=== PATIENT | female | born 1995 | race Caucasian/White ===

== ENCOUNTER 2019-10-15 09:21 | Emergency (ER) | payer OTHER ==
[~2019-10-15] VITALS: Ht 162.6 cm; Wt 64.6 kg
[~2019-10-15 09:21] MED LIST: AZIT500T10 PO; BIRTH CONTROL PILL PO; FLUC200T PO; SUMA50TA3 PO
--- NOTE | 2019-10-15 09:56 | NUR ---
TO ROOM FROM LOBBY. NAD.
--- NOTE | 2019-10-15 10:04 | NUR ---
pt ambulated with a steady gait from the lobby. 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 mother is at bedside with pt. warm blankets and ua cup given. awaiting provider orders.
[2019-10-15 11:52] LABS: MICROSCOPIC INDICATED
[2019-10-15 11:57] LABS: MEAN CORPUSCULAR HGB CONC 32.9 g/dL (32.4-35.8); MEAN CORPUSCULAR VOLUME 94.3 fL (80-100); RED BLOOD COUNT 3.99 x10^6/uL (3.82-5.3); RED CELL DISTRIBUTION WIDTH 15.6 % (9.6-15.2)
[2019-10-15 12:00] LABS: ALBUMIN 4.1 g/dL (3.4-5.0); ANION GAP 7 mmol/L (5-15); CALCIUM 8.9 mg/dL (8.5-10.1); CHLORIDE 112 mmol/L (98-107); CREATININE 0.82 mg/dL (0.55-1.02)
[2019-10-15 12:01] LABS: CULTURE INDICATED? NO
[2019-10-15 12:28] LABS: BASOPHILS # (AUTO) 0.04 x10^3/uL (0-0.1); BASOPHILS % (AUTO) 0 % (0-1); EOSINOPHILS # (AUTO) 0.41 x10^3/uL (0-0.4); EOSINOPHILS % (AUTO) 4 % (1-7); LYMPHOCYTES # (AUTO) 3.19 x10^3/uL (1-3.4); LYMPHOCYTES % (AUTO) 27 % (22-44); MD SCAN; MEAN PLATELET VOLUME 9.6 fL (7.4-10.4); MONOCYTES # (AUTO) 0.67 x10^3/uL (0.2-0.8); MONOCYTES % (AUTO) 6 % (2-9); NEUTROPHILS # (AUTO) 7.49 x10^3/uL (1.8-6.8); NEUTROPHILS % (AUTO) 64 % (42-75); PLATELET COUNT 263 x10^3/uL (130-400)
--- NOTE | 2019-10-15 14:02 | NUR ---
SPOKE WITH JEAN-CLAUDE. LEATHA NOT READY AT THIS TIME.
[2019-10-15 14:19] VITALS: BP 100/54
[2019-10-15 14:45] VITALS: BP 106/62
== END 2019-10-15 15:22 | disposition home or self-care (01) ==
LOC: ED 11:57
DX: O03.4 Incomplete spontaneous abortion without complication (principal)
CPT/HCPCS: 36415; 76830; 80048; 81001; 82040; 84702; 84703; 85025; 86850; 86900; 96372; 99284; J2790